=== PATIENT | male | born 1955 | race African-American/Black ===

== ENCOUNTER 2016-08-21 19:37 | Inpatient (IN) | payer BC ==
[~2016-08-21] VITALS: Ht 182.9 cm; Wt 104.4 kg
[~2016-08-21 19:37] MED LIST: AMLO10TA2 PO; ASPI-482 PO; CARV12.52 PO; LISI1TAB7 PO; LORA2TAB PO; SPIR25TA3 PO
[2016-08-21 20:40] VITALS: BP 95/61
[2016-08-21] MEDS ORDERED: POLYETHYLENE GLYCOL 3350 17 GM PACKET. PO PRN (21:45)
[2016-08-21] MEDS ORDERED: HYDROCODONE/APAP 5/325MG TABLET. PO PRN (21:45)
[2016-08-21] MEDS ORDERED: CEFTRIAXONE SODIUM 1 GM in IV NORMAL SALINE 50ML 50 ML IV SCH (22:00)
[2016-08-21] MEDS: ACETAMINOPHEN 325 MG TABLET. PO PRN (22:02)
[2016-08-21 22:35] LABS: BASO % 0 % (0-3); EOS % 0 % (0-3); HEMATOCRIT 40.3 % (39.0-53.0); LYMPH # 0.7 x10^3/uL (1.0-4.8); LYMPH % 13 % (24-48); MEAN CORPUSCULAR HEMOGLOBIN 28 pg (25-35); MEAN CORPUSCULAR HGB CONC 32 g/dL (31-37); MEAN CORPUSCULAR VOLUME 86 fL (79-100); MONO % 13 % (0-9); NEUT % 73 % (31-73); PLATELET COUNT 165 x10^3/uL (140-400); RED BLOOD COUNT 4.68 x10^6/uL (4.30-5.70); RED CELL DISTRIBUTION WIDTH 14.6 % (11.5-14.5); WHITE BLOOD COUNT 5.1 x10^3/uL (4.0-11.0)
[2016-08-21] MEDS ORDERED: FURO40TA4 PO (22:40)
[2016-08-21] MEDS ORDERED: LISI-334 PO (22:40)
[2016-08-21] MEDS ORDERED: CARV25TA2 PO (22:40)
[2016-08-21 22:47] LABS: OBC FLU VALID
[2016-08-21 22:52] LABS: ALBUMIN 4.2 g/dL (3.4-5.0); ALBUMIN/GLOBULIN RATIO 0.9 (1.0-1.7); CREATININE 1.6 mg/dL (0.7-1.3); GFR 53.6; POTASSIUM 3.8 mmol/L (3.5-5.1); TOTAL BILIRUBIN 0.4 mg/dL (0.2-1.0)
[2016-08-21 23:00] VITALS: BP 149/83
[2016-08-21 23:38] VITALS: BP_SYST 147; BP_SYST 148; BP_DIAS 79; BP_DIAS 87
[2016-08-22 00:15] LABS: BILIRUBIN,URINE NEGATIVE (NEG); GLUCOSE,URINE NEGATIVE (NEG); NITRITE,URINE NEGATIVE (NEG); PROTEIN,URINE NEGATIVE (NEG-TRACE); UROBILINOGEN,URINE 0.2 mg/dL (0.2 mg/dL)
[2016-08-22 00:24] LABS: BACTERIA,URINE MOD /HPF (0-FEW); RBC,URINE 0 /HPF (0-2); SQUAMOUS EPITHELIAL CELL,UR FEW /LPF
--- NOTE | 2016-08-22 01:30 | HP ---
ADMIT DATE: 08/21/2016 HISTORY OF PRESENT ILLNESS: This is a 61-year-old black male who was seen in the office this evening. He stated that he was not feeling well 4 days ago and had a fever. He did not check his temperature. He came out of the shower and fell. He had passed out. He, however, got up and went about his business. In the next few days, he continued to have fever, body aches and pains. He was also coughing up yellowish sputum. This morning when I got up out of bed, he fell again. He had passed out. That caused him to be concern, but he did not call me until this evening. It was a ____ that he came into the office. In the office, he had a temperature of 102 degrees. An EKG was normal. He had no orthostatic hypotension. He was advised hospitalization. PAST MEDICAL HISTORY: Significant. He was hospitalized here about 2 years ago with severe chest pain and back pain. Coronary arteriogram shows negative. 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 He also had a cardiomyopathy and he has had a known cardiomyopathy and was being followed by the physicians at . His EF was 30%. Initially he was transferred to , who observed him for a week. He had hemothorax that was drained. Finally, the decision was to treat this without surgery. His blood pressure was better controlled and he was discharged. He then came to see me and I have been controlling his blood pressure. I then sent him to see Dr. Austin at [facility]. Dr. Austin agreed with the medical management of his extensive dissection. Recently, however, Dr. 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 He has another appointment to see Dr. Austin this week. All along this time, he has had renal dysfunction. He has had ____ several times to evaluate the dissecting aorta. However, his renal functions have remained stable and at the last check his creatinine was 1.8. Because of his cardiomyopathy and ejection fraction of 20-30%, he was advised AICD, but he has consistently refused it. PRESENT MEDICATIONS: 1. Spironolactone 25 mg a day. 2. Carvedilol 25 mg twice a day. 3. Furosemide 40 mg a day. 4. Lisinopril 20 mg a day. 5. Hydrocodone p.r.n. He says he takes Aleve p.r.n., but I will have to stop that. PHYSICAL EXAMINATION: GENERAL: He was in no distress. VITAL SIGNS: The heart rate was 90 per minute and regular. The blood pressure is 120/80 with no orthostasis. The temperature was 102. Oxygen saturation was normal. LUNGS: Clear. HEART: The heart sounds are normal with no murmur or gallop. The throat was injected. ABDOMEN: Soft. EXTREMITIES: There is no edema of the legs. IMPRESSION: 1. Acute bronchitis, rule out pneumonia. 2. Nonischemic cardiomyopathy. 3. Probable influenza. 4. Syncope needs to be concerned about ventricular arrhythmias because of his underlying cardiomyopathy. We will initiate him on IV antibiotics and Tamiflu. We will monitor him for arrhythmias. If there are indeed evidence of arrhythmias, he would be approached again regarding AICD. JOSE CARLOS DOBSON MD DR: MARY CARMEN/liliane JOB#: [id number] / [id number]
[2016-08-22 03:00] VITALS: BP 121/64
[2016-08-22 08:20] VITALS: BP 119/77
--- NOTE | 2016-08-22 08:41 | RAD ---
INDICATION: cough COMPARISON: 02/18/2015 FINDINGS: 2 views of chest obtained. There is interval placement of aortic stent graft. No definite focal airspace consolidation or edema. Cardiac silhouette is borderline enlarged IMPRESSION: No definite focal airspace consolidation.
[2016-08-22] MEDS: LOSARTAN POTASSIUM 50 MG TABLET. PO SCH ×2 (09:00→12:06)
[2016-08-22] MEDS ORDERED: SPIRONOLACTONE 25 MG TABLET PO SCH (09:00)
[2016-08-22] MEDS: FUROSEMIDE 40 MG TABLET PO SCH (09:09)
[2016-08-22] MEDS: OSELTAMIVIR 75 MG CAPSULE PO SCH ×2 (09:10→20:25)
[2016-08-22] MEDS: CARVEDILOL 12.5 MG TABLET PO SCH ×2 (09:11→18:21)
--- NOTE | 2016-08-22 09:30 | PDOC ---
Infectious Disease Note Vital Sign Vital Signs Vital Signs Date Time Temp Pulse Resp B/P Pulse Ox O2 Delivery O2 Flow Rate FiO2 08/22/16 09:11 94 119/77 08/22/16 08:20 100.0 20 94 Room Air 100.0 Labs Lab Laboratory Tests Test 08/21/16 22:10 08/21/16 22:15 08/21/16 23:34 Influenza Type A Antigen Negative (NEGATIVE) Influenza Type B Antigen Negative (NEGATIVE) White Blood Count 5.1x10^3/uL (4.0-11.0) Red Blood Count 4.68x10^6/uL (4.30-5.70) Hemoglobin 13.0g/dL (13.0-17.5) Hematocrit 40.3% (39.0-53.0) Mean Corpuscular Volume 86fL (79-100) Mean Corpuscular Hemoglobin 28pg (25-35) Mean Corpuscular Hemoglobin Concent 32g/dL (31-37) Red Cell Distribution Width 14.6% (11.5-14.5) Platelet Count 165x10^3/uL (140-400) Neutrophils (%) (Auto) 73% (31-73) Lymphocytes (%) (Auto) 13% (24-48) Monocytes (%) (Auto) 13% (0-9) Eosinophils (%) (Auto) 0% (0-3) Basophils (%) (Auto) 0% (0-3) Neutrophils # (Auto) 3.7x10^3uL (1.8-7.7) Lymphocytes # (Auto) 0.7x10^3/uL (1.0-4.8) Monocytes # (Auto) 0.7x10^3/uL (0.0-1.1) Eosinophils # (Auto) 0.0x10^3/uL (0.0-0.7) Basophils # (Auto) 0.0x10^3/uL (0.0-0.2) Sodium Level 134mmol/L (136-145) Potassium Level 3.8mmol/L (3.5-5.1) Chloride Level 95mmol/L (98-107) Carbon Dioxide Level 27mmol/L (21-32) Anion Gap 12 (6-14) Blood Urea Nitrogen 19mg/dL (8-26) Creatinine 1.6mg/dL (0.7-1.3) Estimated GFR (Cockcroft-Gault) 53.6 BUN/Creatinine Ratio 12 (6-20) Glucose Level 86mg/dL (70-99) Calcium Level 9.0mg/dL (8.5-10.1) Total Bilirubin 0.4mg/dL (0.2-1.0) Aspartate Amino Transf (AST/SGOT) 38U/L (15-37) Alanine Aminotransferase (ALT/SGPT) 31U/L (16-63) Alkaline Phosphatase 61U/L (46-116) Troponin I Quantitative 0.032ng/mL (0.000-0.055) Total Protein 9.0g/dL (6.4-8.2) Albumin 4.2g/dL (3.4-5.0) Albumin/Globulin Ratio 0.9 (1.0-1.7) Urine Collection Type Unknown Urine Color Yellow Urine Clarity Clear Urine pH 6.0 Urine Specific [place] 1.010 Urine Protein Negativemg/dL (NEG-TRACE) Urine Glucose (UA) Negativemg/dL (NEG) Urine Ketones (Stick) Negativemg/dL (NEG) Urine Blood Negative (NEG) Urine Nitrite Negative (NEG) Urine Bilirubin Negative (NEG) Urine Urobilinogen Dipstick 0.2mg/dL (0.2 mg/dL) Urine Leukocyte Esterase Negative (NEG) Urine RBC 0/HPF (0-2) Urine WBC 1-4/HPF (0-4) Urine Squamous Epithelial Cells Few/LPF Urine Transitional Epithelial Cells Occ/LPF Urine Bacteria Mod/HPF (0-FEW) Urine Hyaline Casts Few/HPF Urine Mucus Slight/LPF Objective Assessment Fever URI symptoms Syncope h/o Aortic dissection s/p stenting Renal insufficiency Plan Plan of Care agree with levaquin and tamiflu d/c rocephine get ct chest , abd and pelvis may need echo JUAN CARMONA MD Aug 22, 2016 09:30
[2016-08-22 11:10] VITALS: BP 119/76
[2016-08-22 15:00] VITALS: BP 111/70
[2016-08-22] MEDS: ACETAMINOPHEN 325 MG TABLET. PO PRN (18:20)
[2016-08-22] MEDS: IV NORMAL SALINE 1000ML BAG 1,000 ML IV SCH (18:45)
[2016-08-22 19:00] VITALS: BP 94/55
--- NOTE | 2016-08-22 20:51 | PDOC ---
Provider Note Provider Note MAXIMUM TEMPERATURE of 101.1 today.He feels better. His creatinine is elevated to 1.8. The aortic dissection is being followed by his surgeon Dr. Austin at [facility]. He has an appointment with him in the next week. Will thus cancel the CT with contrast that was requested for today so that it could be done at his surgeon's office. Obtain CT chest with no IV contrast tomorrow to look for pulmonary infiltrates. JOSE CARLOS DOBSON MD Aug 22, 2016 20:51
[2016-08-22] MEDS: IPRATRPIUM/ALBUTEROL 0.5/2.5MG 3 ML NEBU. NEB SCH (22:42)
[2016-08-22 23:00] VITALS: BP 82/48
[2016-08-22] MEDS: HEPARIN PF for SUB-Q USE 5,000 UNIT/0.5 ML VIAL. SQ SCH (23:39)
[2016-08-23] VITALS (7 sets, daily range): BP systolic 90–166; BP diastolic 50–102
--- NOTE | 2016-08-23 02:04 | CONS ---
DATE OF CONSULTATION: 08/22/2016 REQUESTING PHYSICIAN: Dr. Contreras. REASON FOR CONSULTATION: Fever and syncope. HISTORY OF PRESENT ILLNESS: This is a 61-year-old -[place] gentleman with history of hypertension and aortic dissection who came in with his syncopal episode, 2 of them. The first one he says he has had it on Thursday. Initially, he thought he tripped and fell, but then he realized that he had passed out for a very brief moment, he says. The patient has been having URI symptoms before then with cough, congestion, and significant phlegm that he cannot get it out, he says. The patient again yesterday passed out. Hence then eventually, his neighbor called and was brought in. The patient denies any chest pain, denies any nausea, vomiting, diarrhea, denies any urinary symptoms, denies any headache or visual symptoms. The patient has been noted to have 103 fever. The patient has been started on Rocephin, Levaquin, and Tamiflu. Influenza screen was negative. Blood cultures have been done. Chest x-ray is unremarkable. PAST MEDICAL HISTORY: Positive for hypertension, renal insufficiency, aortic dissection, status post stenting done about a year and half ago. SOCIAL HISTORY: Negative for smoking, alcohol, or illicit drug use. ALLERGIES: Listed as allergic to MORPHINE. CURRENT MEDICATIONS: Reviewed. REVIEW OF SYSTEMS: As per HPI, all other systems reviewed are negative. PHYSICAL EXAMINATION: GENERAL: Alert and oriented gentleman, not in distress. VITAL SIGNS: Temperature 100.0 with a T-max 103, pulse 94, respirations 20, blood pressure 119/77. HEENT: NAD. NECK: Supple, no JVP, no lymphadenopathy. LUNGS: Clear. HEART: S1 and S2 regular. ABDOMEN: Benign. EXTREMITIES: No edema or cyanosis. SKIN: Unremarkable. NEUROLOGIC: The patient is neurologically intact. LABORATORY DATA: White count is 5.1, hemoglobin 13.0, and platelets are normal. His BUN is 19, creatinine 1.6. AST is 38, ALT 31. Influenza screen is negative. Urinalysis is unremarkable. Chest x-ray is unremarkable. Throat culture is negative. Blood culture is so far negative. IMPRESSION: 1. Fever. This gentleman has no other obvious reason. Fever could be viral illness. Influenza is still a possibility with the screen negative. 2. Upper respiratory infection symptoms. 3. Syncope. 4. History of aortic dissection, status post stenting. 5. Renal insufficiency. 6. Hypertension. RECOMMENDATIONS: I agree with Levaquin and Tamiflu. We will discontinue Rocephin. We will get CT of abdomen and pelvis and may need echocardiogram. Thank you very much, Dr. Contreras, for giving me the opportunity to participate in this patient's care. JUAN CARMONA MD DR: GRACY/nts JOB#: [id number] / [id number]
[2016-08-23] MEDS: IV NORMAL SALINE 1000ML BAG 1,000 ML IV SCH ×2 (05:23→15:05)
[2016-08-23] MEDS: HEPARIN PF for SUB-Q USE 5,000 UNIT/0.5 ML VIAL. SQ SCH ×3 (05:29→21:32)
[2016-08-23] MEDS: IPRATRPIUM/ALBUTEROL 0.5/2.5MG 3 ML NEBU. NEB SCH ×4 (07:44→20:11)
[2016-08-23] MEDS: CARVEDILOL 12.5 MG TABLET PO SCH ×2 (08:00→17:48)
[2016-08-23] MEDS: LOSARTAN POTASSIUM 50 MG TABLET. PO SCH (09:00)
[2016-08-23] MEDS: FUROSEMIDE 40 MG TABLET PO SCH (09:00)
--- NOTE | 2016-08-23 09:25 | PDOC ---
Infectious Disease Note Subjective Subjective Better. fever better. Less congestion ROS ROS GEN: Denies fevers, chills, sweats HEENT: Denies blurred vision, sore throat CV: Some chest pain from fall - better RESP: Denies shortness of air GI: Denies n/v/d NEURO: Denies confusion, dizziness MSK: Denies weakness, joint pain/swelling Vital Sign Vital Signs Vital Signs Date Time Temp Pulse Resp B/P Pulse Ox O2 Delivery O2 Flow Rate FiO2 08/23/16 07:44 96 Room Air 08/23/16 07:00 98.1 65 18 90/50 98.1 Physical Exam PHYSICAL EXAM GENERAL: NAD, Alert, in bed. looks well HEENT: PERRL, OC/OP -clear NECK: Supple, no JVD, no LN LUNGS: Clear HEART: S1S2, no gallop, no murmur ABD: Soft, NT, no organomegaly, no rebound EXT: No edema, no cyanosis SAFETY SCIENTIST: Alert, oriented x 3, no focal neurologic deficit SKIN: No rash IV: ok Labs Lab Laboratory Tests Test 08/22/16 11:00 Creatine Kinase 906U/L (39-308) Objective Assessment Overall feels better Fever -better URI symptoms Syncope h/o Aortic dissection s/p stenting Renal insufficiency Plan Plan of Care agree with levaquin for now D/c tamiflu Labs in am F/u ct may need echo MARGA CORTES MD Aug 23, 2016 09:25
--- NOTE | 2016-08-23 09:32 | RAD ---
Indication fever. Cough. Axial noncontrast images through the chest were obtained. Note is made of a previous examination 02/16/2015. Some coronary artery calcification is noted. The ascending thoracic aorta is prominent measuring approximately 4.4 cm. There has not been a significant change however in this regard relative to the previous exam. A stent is now noted extending from the arch of the aorta to the distal descending thoracic aorta. Some mild aneurysmal dilatation of the upper abdominal aorta is seen. It is dilated to approximately 4 cm representing a slight increase in size, by approximately 2 to 3 mm, relative to the previous exam. There are a few mediastinal lymph nodes. These are likely incidental and appear somewhat smaller than on the previous exam. A dominant soft tissue mass in either lung is not seen. There is some scarring at the left lung base similar to the previous exam. An acute parenchymal infiltrate in either lung is not seen. Imaging through the upper abdomen is unremarkable. IMPRESSION: No acute finding seen in the chest. Thoracic stent graft. Mild aneurysmal dilatation of the upper abdominal aorta. Unchanged prominence of the ascending thoracic aorta PQRS Compliance Statement: One or more of the following individualized dose reduction techniques were utilized for this examination: 1. Automated exposure control 2. Adjustment of the mA and/or kV according to patient size 3. Use of iterative reconstruction technique
--- NOTE | 2016-08-23 12:02 | CONS ---
DATE OF CONSULTATION: 08/22/2016 REFERRING PHYSICIAN: Dr. Camelia Contreras. CHIEF COMPLAINT: Shortness of breath, weakness, syncope. HISTORY OF PRESENT ILLNESS: The patient is a 61-year-old gentleman with significant cardiac history that dated back to 02/2015, at which time he had an aortic root dissection, which was repaired at . His echo at that time had shown an EF of 20% to 25%. He has been monitored by Dr. Contreras since with echo, most recently about a year ago. Discussions are ongoing about pacer/AICD placement for persistent heart failure. The patient presented in direct admit through Dr. Contreras with a history of 2 weeks of shortness of breath, cough without any chest pain. Generalized malaise, weakness as well. Appetite was off. In hindsight, he had 2 episodes of syncope with sudden loss of consciousness, one 5 days ago, second one just yesterday, which actually was observed by his neighbor, who had called when he had a lightheadedness, dizziness prodrome. With the first event, he actually hit his chest as well as his head, both areas are sore. He is now admitted for further monitoring and workup. PAST MEDICAL HISTORY: CHF, history of aortic root dissection repaired at , followup EF was 30%. CAD, status post stent placement about a year ago by Dr. Austin. Chronic renal insufficiency stage 3 and suspected COPD with [id number] history, quit smoking with his cardiac event in 2014. FAMILY HISTORY: Negative for heart disease. SOCIAL HISTORY: Lives by himself. No ongoing toxic habits. He is retired. ALLERGIES: MORPHINE. MEDICATIONS: MAR reviewed. REVIEW OF SYSTEMS: The patient is feeling much better, although general malaise is persisting, had fevers yesterday, mild cough as well. Denies any chest pain per se. No abdominal pain symptoms. The rest of organ system review is negative. PHYSICAL EXAMINATION: VITAL SIGNS: Show a blood pressure of 111/70, heart rate at 88, temperature at 101.1, satting 97% on room air. GENERAL: This is an obese 61-year-old -[place] gentleman, awake and alert, in no acute distress. HEENT: Shows no scleral icterus. Oral mucosa is pink and moist. No sign of thrush. NECK: Supple, without any palpable lymphadenopathy. LUNGS: Clear bilaterally with significantly decreased breath sounds. CARDIOVASCULAR: Regular rate and rhythm. ABDOMEN: Obese, positive bowel sounds, soft and nontender. EXTREMITIES: Show no edema, no clubbing, no cyanosis. SKIN: Warm, soft and dry without any rash. LABORATORY DATA: CBC from today shows a WBC of 5.1, hemoglobin of 13.0, platelets at 135. Chemistries with a BUN and creatinine of 19 and 1.6. Electrolytes with a sodium of 134, potassium of 3.8. LFTs essentially within normal limits. Interestingly, his creatine kinase is 906 with a normal troponin. Total protein at 9 with an albumin of 4.2. Influenza A and B serologies are negative. UA shows moderate bacteria with 1-4 wbc's. IMAGING: Chest x-ray from yesterday shows no definite focal airspace consolidation or edema. Cardiac silhouette is borderline enlarged. ASSESSMENT AND PLAN: The patient is a 61-year-old gentleman with respiratory symptoms for the past 2 weeks. He now completely agrees with broad spectrum coverage with levofloxacin. Blood cultures have been obtained. Suspect, however, that he has potentially a urinary tract infection with urosepsis. Levaquin should cover this as well. Cultures are pending. Orthostatic vital signs have just been obtained and the patient is indeed orthostatic. He confirms that his p.o. intake has been poor over the past couple of weeks. We will gently hydrate him with a liter, careful to not worsen his congestive heart failure. We will obtain an echocardiogram in the a.m. to get current status to help with further discussions about automatic implantable cardioverter-defibrillator placement. The patient is concerned to have an "object" in his chest. I am also concerned with his tightness in his chest, albeit without any wheezing, that he may have a chronic obstructive pulmonary disease exacerbation. Should he not improve, would consider steroids. We will treat him with nebulizers in the meantime. Steroids with ongoing infection as well as congestive heart failure are somewhat difficult to justify without definitive diagnosis. The patient does have history of coronary artery disease as well. He is on multiple medications, which will be continued as per Dr. Contreras. He is currently on 2 diuretics. We would consider holding these temporarily given his orthostasis. The patient does have chronic kidney disease stage 3, which currently appears to be at baseline. We would carefully monitor. Avoid nephrotoxic agents. The patient has elevated creatine kinase. This is somewhat unusual given his fairly normal troponin. I suspect this actually may be muscular in origin, question statin use in the past. Alternatively, this may indicate more muscle bruising from recent falls as well. Given his current medical issues and decreased activity level, I would prophylax for deep venous thrombosis with heparin. RUFINO JEFFREY MD DR: HENRY/nts JOB#: [id number] / [id number]
--- NOTE | 2016-08-23 12:05 | PDOC ---
PROGRESS NOTES Chief Complaint Chief Complaint Acute hypoxic respir distress ASSESSMENT AND PLAN: 1. Bronchitis/viral syndrome: clinically improved. CT chest w/o infiltrate. Abx as per ID 2. Sepsis: improving. 3. ?COPD: nebs seem to help. no wheezing, but much decreased BS. consider steroids, but has to be weighed against potential ASE in acute CHF 4. CHF: chronic systolic : no clinical findings of fluid overload by P.E or radiographic findings. pro-BNP sl up, poss 2/2 CKD. continue home meds. echo pending 5. Orthostatic Hypotension: improving after gentle fluid hydration O/N. spironolactone on hold for now; cont lasix. monitor fluid status, VS 6. UTI: awaiting urine culture. empiric levaquin. 7. CKD3: at baseline. awaiting today's labs 8. Elevated CK: ?myositis, poss statin effect. rpt lab pending 9. Hx aortic dissection: s/p stenting 1.5 yrs ago 10. Prophylaxis: heparin Vitals Vitals Vital Signs Date Time Temp Pulse Resp B/P Pulse Ox O2 Delivery O2 Flow Rate FiO2 08/23/16 11:22 Room Air 08/23/16 10:56 98.1 71 111/65 96 98.1 08/23/16 07:00 18 Physical Exam General: Alert, Oriented X3, Cooperative Heart: Regular rate Lungs: Clear, Other (decreased BS) Abdomen: Normal bowel sounds, Soft, No tenderness, Other (obese) Extremities: No clubbing, No edema Skin: No rashes Review of Systems Review of Systems feels better this AM. nebs helped. gen malaise improving Comment Review of Relevant RUFINO JEFFREY MD Aug 23, 2016 12:05
[2016-08-23 13:16] LABS: BASO % 0 % (0-3); EOS % 1 % (0-3); HEMATOCRIT 32.6 % (39.0-53.0); HEMOGLOBIN 10.6 g/dL (13.0-17.5); LYMPH # 1.9 x10^3/uL (1.0-4.8); LYMPH % 42 % (24-48); MEAN CORPUSCULAR HEMOGLOBIN 28 pg (25-35); MEAN CORPUSCULAR HGB CONC 33 g/dL (31-37); MEAN CORPUSCULAR VOLUME 85 fL (79-100); MONO % 13 % (0-9); NEUT % 44 % (31-73); PLATELET COUNT 147 x10^3/uL (140-400); RED BLOOD COUNT 3.82 x10^6/uL (4.30-5.70); RED CELL DISTRIBUTION WIDTH 14.6 % (11.5-14.5); WHITE BLOOD COUNT 4.4 x10^3/uL (4.0-11.0)
[2016-08-23 13:32] LABS: ALBUMIN 2.4 g/dL (3.4-5.0); ALBUMIN/GLOBULIN RATIO 0.7 (1.0-1.7); CALCIUM 6.8 mg/dL (8.5-10.1); CREATININE 1.2 mg/dL (0.7-1.3); GFR 74.7; TOTAL BILIRUBIN 0.2 mg/dL (0.2-1.0); TOTAL PROTEIN 5.9 g/dL (6.4-8.2)
[2016-08-23 13:35] LABS: POTASSIUM 2.9 mmol/L (3.5-5.1)
[2016-08-23] MEDS ORDERED: POTASSIUM CHLORIDE 20 MEQ TABLET.ER. PO ONE ×2 (13:45→17:00)
--- NOTE | 2016-08-23 15:25 | PDOC ---
Provider Note Provider Note He still feels very weak and has not been out of bed. Cough is better. Lungs are clear. He is afebrile today. Monitor at 8.17 EN-wdej-hqwzi-showed-a 5 beat run of multifocal ventricular tachycardia. The patient so far had been refusing a defibrillator. I showed him the strip of the ventricular tachycardia. He now seems to be agreeable to a defibrillator but I would wait at least a week after he had had a temperature of 103. In the meantime will request [facility] to give him a LifeVest. Transferr to C[facility] for better monitoring. JOSE CARLOS DOBSON MD Aug 23, 2016 15:25
[2016-08-24] MEDS: IV NORMAL SALINE 1000ML BAG 1,000 ML IV SCH ×2 (02:45→12:00)
[2016-08-24 03:20] VITALS: BP 135/80
[2016-08-24 04:14] LABS: BASO % 1 % (0-3); EOS % 2 % (0-3); HEMATOCRIT 34.4 % (39.0-53.0); HEMOGLOBIN 11.4 g/dL (13.0-17.5); LYMPH # 2.1 x10^3/uL (1.0-4.8); LYMPH % 43 % (24-48); MEAN CORPUSCULAR HEMOGLOBIN 28 pg (25-35); MEAN CORPUSCULAR HGB CONC 33 g/dL (31-37); MEAN CORPUSCULAR VOLUME 85 fL (79-100); MONO % 8 % (0-9); NEUT % 46 % (31-73); PLATELET COUNT 168 x10^3/uL (140-400); RED BLOOD COUNT 4.06 x10^6/uL (4.30-5.70); RED CELL DISTRIBUTION WIDTH 14.1 % (11.5-14.5); WHITE BLOOD COUNT 4.8 x10^3/uL (4.0-11.0)
[2016-08-24 04:26] LABS: CALCIUM 8.8 mg/dL (8.5-10.1); CREATININE 1.4 mg/dL (0.7-1.3); GFR 62.6; POTASSIUM 4.6 mmol/L (3.5-5.1)
[2016-08-24] MEDS: HEPARIN PF for SUB-Q USE 5,000 UNIT/0.5 ML VIAL. SQ SCH ×3 (06:22→21:00)
[2016-08-24 07:00] VITALS: BP 144/77
[2016-08-24] MEDS: IPRATRPIUM/ALBUTEROL 0.5/2.5MG 3 ML NEBU. NEB SCH ×4 (07:24→19:17)
[2016-08-24] MEDS: CARVEDILOL 12.5 MG TABLET PO SCH ×2 (07:43→16:21)
[2016-08-24] MEDS: FUROSEMIDE 40 MG TABLET PO SCH (08:43)
[2016-08-24] MEDS: LOSARTAN POTASSIUM 50 MG TABLET. PO SCH (08:43)
[2016-08-24] MEDS: ACETAMINOPHEN 325 MG TABLET. PO PRN (08:50)
--- NOTE | 2016-08-24 10:41 | PDOC ---
Infectious Disease Note Subjective Subjective Transferred to [facility]VC d/t run of V-TACH Denies SOA, CP or lightheadedness Feeling bloated, no BM. Recent You-a Lax. Ken N/V/abd pain Mild sore throat, not too bad ROS ROS GEN: Denies fevers, chills, sweats Vital Sign Vital Signs Vital Signs Date Time Temp Pulse Resp B/P Pulse Ox O2 Delivery O2 Flow Rate FiO2 08/24/16 08:43 73 144/77 08/24/16 07:27 100 Room Air 08/24/16 07:00 98.0 18 98.0 Physical Exam PHYSICAL EXAM GENERAL: Propped up in bed, NAD HEENT: PERRL, OC/OP clear LUNGS: Clear HEART: S1S2, no gallop, no murmur ABD: Soft, NT, BS present EXT: No edema, no cyanosis CLINICAL BIOCHEMIST: Alert, oriented x 3, no focal neurologic deficit SKIN: No rash IV: ok Labs Lab Laboratory Tests Test 08/23/16 12:50 08/24/16 03:30 White Blood Count 4.4x10^3/uL (4.0-11.0) 4.8x10^3/uL (4.0-11.0) Red Blood Count 3.82x10^6/uL (4.30-5.70) 4.06x10^6/uL (4.30-5.70) Hemoglobin 10.6g/dL (13.0-17.5) 11.4g/dL (13.0-17.5) Hematocrit 32.6% (39.0-53.0) 34.4% (39.0-53.0) Mean Corpuscular Volume 85fL (79-100) 85fL (79-100) Mean Corpuscular Hemoglobin 28pg (25-35) 28pg (25-35) Mean Corpuscular Hemoglobin Concent 33g/dL (31-37) 33g/dL (31-37) Red Cell Distribution Width 14.6% (11.5-14.5) 14.1% (11.5-14.5) Platelet Count 147x10^3/uL (140-400) 168x10^3/uL (140-400) Neutrophils (%) (Auto) 44% (31-73) 46% (31-73) Lymphocytes (%) (Auto) 42% (24-48) 43% (24-48) Monocytes (%) (Auto) 13% (0-9) 8% (0-9) Eosinophils (%) (Auto) 1% (0-3) 2% (0-3) Basophils (%) (Auto) 0% (0-3) 1% (0-3) Neutrophils # (Auto) 1.9x10^3uL (1.8-7.7) 2.2x10^3uL (1.8-7.7) Lymphocytes # (Auto) 1.9x10^3/uL (1.0-4.8) 2.1x10^3/uL (1.0-4.8) Monocytes # (Auto) 0.6x10^3/uL (0.0-1.1) 0.4x10^3/uL (0.0-1.1) Eosinophils # (Auto) 0.0x10^3/uL (0.0-0.7) 0.1x10^3/uL (0.0-0.7) Basophils # (Auto) 0.0x10^3/uL (0.0-0.2) 0.0x10^3/uL (0.0-0.2) Sodium Level 140mmol/L (136-145) 134mmol/L (136-145) Potassium Level 2.9mmol/L (3.5-5.1) 4.6mmol/L (3.5-5.1) Chloride Level 108mmol/L (98-107) 102mmol/L (98-107) Carbon Dioxide Level 22mmol/L (21-32) 24mmol/L (21-32) Anion Gap 10 (6-14) 8 (6-14) Blood Urea Nitrogen 20mg/dL (8-26) 20mg/dL (8-26) Creatinine 1.2mg/dL (0.7-1.3) 1.4mg/dL (0.7-1.3) Estimated GFR (Cockcroft-Gault) 74.7 62.6 BUN/Creatinine Ratio 17 (6-20) Glucose Level 76mg/dL (70-99) 88mg/dL (70-99) Calcium Level 6.8mg/dL (8.5-10.1) 8.8mg/dL (8.5-10.1) Total Bilirubin 0.2mg/dL (0.2-1.0) Aspartate Amino Transf (AST/SGOT) 27U/L (15-37) Alanine Aminotransferase (ALT/SGPT) 21U/L (16-63) Alkaline Phosphatase 39U/L (46-116) Creatine Kinase 622U/L (39-308) Total Protein 5.9g/dL (6.4-8.2) Albumin 2.4g/dL (3.4-5.0) Albumin/Globulin Ratio 0.7 (1.0-1.7) Chest CT wo contrast Some coronary artery calcification is noted. The ascending thoracic aorta is prominent measuring approximately 4.4 cm. There has not been a significant change however in this regard relative to the previous exam. A stent is now noted extending from the arch of the aorta to the distal descending thoracic aorta. Some mild aneurysmal dilatation of the upper abdominal aorta is seen. It is dilated to approximately 4 cm representing a slight increase in size, by approximately 2 to 3 mm, relative to the previous exam. There are a few mediastinal lymph nodes. These are likely incidental and appear somewhat smaller than on the previous exam. A dominant soft tissue mass in either lung is not seen. There is some scarring at the left lung base similar to the previous exam. An acute parenchymal infiltrate in either lung is not seen. Imaging through the upper abdomen is unremarkable. IMPRESSION: No acute finding seen in the chest. Thoracic stent graft. Mild aneurysmal dilatation of the upper abdominal aorta. Unchanged prominence of the ascending thoracic aorta Micro BLOOD CULTURE Preliminary NO GROWTH AFTER 2 DAYS Objective Assessment Fever. resolved URI symptoms, improved still some congestion R un V-tach Nonischemic cardiomyopathy Syncope h/o Aortic dissection s/p stenting Renal insufficiency Constipated Plan Plan of Care d/c Levaquin defibrillator being considered may need echo Dose doxy for congestion Attending Co-Sign Attending Co-Sign The patient was seen and interviewed as well as examined at the bedside. The chart was reviewed. The case was discussed. Agree with the plan of care. CORRINA HATFIELD APRN Aug 24, 2016 10:41 MARGA CORTES MD Aug 24, 2016 13:49
[2016-08-24 11:00] VITALS: BP 135/74
--- NOTE | 2016-08-24 12:58 | CARD ---
APPROVED REPORT EXAM: Two-dimensional and M-mode echocardiogram with Doppler and color Doppler. Other Information Quality : Good INDICATION Dyspnea Congestive Heart Failure 2D DIMENSIONS RVDd2.6 (2.9-3.5cm)Left Atrium(2D)4.4 (1.6-4.0cm) IVSd1.4 (0.7-1.1cm)Aortic Root(2D)4.0 (2.0-3.7cm) LVDd6.0 (3.9-5.9cm)LVOT Diameter2.3 (1.8-2.4cm) PWd1.6 (0.7-1.1cm)LVDs5.6 (2.5-4.0cm) FS (%) 6.4 %SV25.2 ml LVEF(%)14.0 (>50%) Aortic Valve AoV Peak Russ.122.3cm/sAoV VTI24.0cm AO Peak GR.6.0mmHgLVOT VTI 13.88cm AO Mean GR.3mmHgAVA (VTI)2.30cm2 AI P 1/2 Qdrs139oh Mitral Valve MV E Inhvciin05.0cm/sMV DECEL [id number] MV A Iageyfod12.1cm/sE/A Ratio0.8 TDI Lateral E' P. V5.21cm/sMedial E' P. V5.08cm/s E/Lateral E'10.7E/Medial E'11.0 LEFT VENTRICLE The Left Ventricle is mildly dilated. There is mild concentric left ventricular hypertrophy. Left raffy tricle systolic function is severely impaired. The Ejection Fraction is 20%. There is severe global h ypokinesis of the left ventricle. Transmitral Doppler flow pattern is Grade I-abnormal relaxation pat tern. RIGHT VENTRICLE The right ventricle is normal size. The right ventricular systolic function is normal. ATRIA The left atrium is mildly dilated. The right atrium size is normal. The interatrial septum is intact with no evidence for an atrial septal defect or patent foramen ovale as noted on 2-D or Doppler imagi ng. AORTIC VALVE The aortic valve is calcified but opens well. Doppler and Color Flow revealed mild to moderate aortic regurgitation. There is no significant aortic valvular stenosis. MITRAL VALVE The mitral valve is calcified but opens well. There is no evidence of mitral valve prolapse. There is no mitral valve stenosis. Doppler and Color Flow revealed no mitral valve regurgitation noted. TRICUSPID VALVE The tricuspid valve is normal in structure and function. Doppler and Color Flow revealed trace tricus pid regurgitation. There is no tricuspid valve stenosis. PULMONIC VALVE The pulmonary valve is normal in structure and function. Doppler and Color Flow revealed trace to mil d pulmonic valvular regurgitation. There is no pulmonic valvular stenosis. GREAT VESSELS The aortic root is mildly at 4.2 cm. The ascending aorta is moderately dilated at 4.2 cm. The IVC is normal in size and collapses >50% with inspiration. PERICARDIAL EFFUSION There is no evidence of significant pericardial effusion. Critical Notification Critical Value: No <Conclusion> The Left Ventricle is mildly dilated. There is mild concentric left ventricular hypertrophy. Left ventricle systolic function is severely impaired. The Ejection Fraction is 20%. There is severe global hypokinesis of the left ventricle. Transmitral Doppler flow pattern is Grade I-abnormal relaxation pattern. There is no evidence of significant pericardial effusion. There is no mitral valve stenosis. Doppler and Color Flow revealed no mitral valve regurgitation noted. The lsft atrium is mildly enlarged Thw aortic valve is tricuspidand the valve leaflets mildly thickened There is no significant aortic valvular stenosis. Doppler and Color Flow revealed mild to moderate aortic regurgitation. The right venticle is of a normal size withnormal systolic function
--- NOTE | 2016-08-24 13:08 | PDOC ---
PROGRESS NOTES Chief Complaint Chief Complaint Acute hypoxic respir distress ASSESSMENT AND PLAN: 1. Bronchitis/viral syndrome: clinically improved. CT chest w/o infiltrate. Abx as per ID 2. Sepsis: improving. 3. ?COPD: nebs seem to help. no wheezing, but much decreased BS. consider steroids, but has to be weighed against potential ASE in acute CHF 4. CHF: chronic systolic : no clinical findings of fluid overload by P.E or radiographic findings. pro-BNP sl up, poss 2/2 CKD. continue home meds. echo pending 5. Orthostatic Hypotension: improving after gentle fluid hydration O/N. spironolactone on hold for now; cont lasix. monitor fluid status, VS 6. UTI: awaiting urine culture. empiric levaquin. 7. CKD3: at baseline. awaiting today's labs 8. Elevated CK: ?myositis, poss statin effect. rpt lab pending 9. Hx aortic dissection: s/p stenting 1.5 yrs ago 10. Prophylaxis: heparin levaquin dced as per ID. waiting to ct home with life vest as per pcp. History of Present Illness History of Present Illness cough better 5 beat VT last night Vitals Vitals Vital Signs Date Time Temp Pulse Resp B/P Pulse Ox O2 Delivery O2 Flow Rate FiO2 08/24/16 11:31 Room Air 08/24/16 08:43 73 144/77 08/24/16 07:27 100 08/24/16 07:00 98.0 18 98.0 Physical Exam General: Alert, Oriented X3, Cooperative Heart: Regular rate Lungs: Clear, Other (decreased BS) Abdomen: Normal bowel sounds, Soft, No tenderness, Other (obese) Extremities: No clubbing, No edema Skin: No rashes Labs LABS Laboratory Tests Test 08/24/16 03:30 White Blood Count 4.8x10^3/uL (4.0-11.0) Red Blood Count 4.06x10^6/uL (4.30-5.70) Hemoglobin 11.4g/dL (13.0-17.5) Hematocrit 34.4% (39.0-53.0) Mean Corpuscular Volume 85fL (79-100) Mean Corpuscular Hemoglobin 28pg (25-35) Mean Corpuscular Hemoglobin Concent 33g/dL (31-37) Red Cell Distribution Width 14.1% (11.5-14.5) Platelet Count 168x10^3/uL (140-400) Neutrophils (%) (Auto) 46% (31-73) Lymphocytes (%) (Auto) 43% (24-48) Monocytes (%) (Auto) 8% (0-9) Eosinophils (%) (Auto) 2% (0-3) Basophils (%) (Auto) 1% (0-3) Neutrophils # (Auto) 2.2x10^3uL (1.8-7.7) Lymphocytes # (Auto) 2.1x10^3/uL (1.0-4.8) Monocytes # (Auto) 0.4x10^3/uL (0.0-1.1) Eosinophils # (Auto) 0.1x10^3/uL (0.0-0.7) Basophils # (Auto) 0.0x10^3/uL (0.0-0.2) Sodium Level 134mmol/L (136-145) Potassium Level 4.6mmol/L (3.5-5.1) Chloride Level 102mmol/L (98-107) Carbon Dioxide Level 24mmol/L (21-32) Anion Gap 8 (6-14) Blood Urea Nitrogen 20mg/dL (8-26) Creatinine 1.4mg/dL (0.7-1.3) Estimated GFR (Cockcroft-Gault) 62.6 Glucose Level 88mg/dL (70-99) Calcium Level 8.8mg/dL (8.5-10.1) Review of Systems Review of Systems no fever, chills, sob or chest pain Assessment and Plan Assessmemt and Plan Problems Medical Problems: (1) Influenza Status: Acute (2) Syncope Status: Acute Problems: Comment Review of Relevant I have reviewed the following items denise (where applicable) has been applied. Labs Laboratory Tests Test 08/23/16 12:50 08/24/16 03:30 White Blood Count 4.4x10^3/uL (4.0-11.0) 4.8x10^3/uL (4.0-11.0) Red Blood Count 3.82x10^6/uL (4.30-5.70) 4.06x10^6/uL (4.30-5.70) Hemoglobin 10.6g/dL (13.0-17.5) 11.4g/dL (13.0-17.5) Hematocrit 32.6% (39.0-53.0) 34.4% (39.0-53.0) Mean Corpuscular Volume 85fL (79-100) 85fL (79-100) Mean Corpuscular Hemoglobin 28pg (25-35) 28pg (25-35) Mean Corpuscular Hemoglobin Concent 33g/dL (31-37) 33g/dL (31-37) Red Cell Distribution Width 14.6% (11.5-14.5) 14.1% (11.5-14.5) Platelet Count 147x10^3/uL (140-400) 168x10^3/uL (140-400) Neutrophils (%) (Auto) 44% (31-73) 46% (31-73) Lymphocytes (%) (Auto) 42% (24-48) 43% (24-48) Monocytes (%) (Auto) 13% (0-9) 8% (0-9) Eosinophils (%) (Auto) 1% (0-3) 2% (0-3) Basophils (%) (Auto) 0% (0-3) 1% (0-3) Neutrophils # (Auto) 1.9x10^3uL (1.8-7.7) 2.2x10^3uL (1.8-7.7) Lymphocytes # (Auto) 1.9x10^3/uL (1.0-4.8) 2.1x10^3/uL (1.0-4.8) Monocytes # (Auto) 0.6x10^3/uL (0.0-1.1) 0.4x10^3/uL (0.0-1.1) Eosinophils # (Auto) 0.0x10^3/uL (0.0-0.7) 0.1x10^3/uL (0.0-0.7) Basophils # (Auto) 0.0x10^3/uL (0.0-0.2) 0.0x10^3/uL (0.0-0.2) Sodium Level 140mmol/L (136-145) 134mmol/L (136-145) Potassium Level 2.9mmol/L (3.5-5.1) 4.6mmol/L (3.5-5.1) Chloride Level 108mmol/L (98-107) 102mmol/L (98-107) Carbon Dioxide Level 22mmol/L (21-32) 24mmol/L (21-32) Anion Gap 10 (6-14) 8 (6-14) Blood Urea Nitrogen 20mg/dL (8-26) 20mg/dL (8-26) Creatinine 1.2mg/dL (0.7-1.3) 1.4mg/dL (0.7-1.3) Estimated GFR (Cockcroft-Gault) 74.7 62.6 BUN/Creatinine Ratio 17 (6-20) Glucose Level 76mg/dL (70-99) 88mg/dL (70-99) Calcium Level 6.8mg/dL (8.5-10.1) 8.8mg/dL (8.5-10.1) Total Bilirubin 0.2mg/dL (0.2-1.0) Aspartate Amino Transf (AST/SGOT) 27U/L (15-37) Alanine Aminotransferase (ALT/SGPT) 21U/L (16-63) Alkaline Phosphatase 39U/L (46-116) Creatine Kinase 622U/L (39-308) Total Protein 5.9g/dL (6.4-8.2) Albumin 2.4g/dL (3.4-5.0) Albumin/Globulin Ratio 0.7 (1.0-1.7) Laboratory Tests Test 08/24/16 03:30 White Blood Count 4.8x10^3/uL (4.0-11.0) Red Blood Count 4.06x10^6/uL (4.30-5.70) Hemoglobin 11.4g/dL (13.0-17.5) Hematocrit 34.4% (39.0-53.0) Mean Corpuscular Volume 85fL (79-100) Mean Corpuscular Hemoglobin 28pg (25-35) Mean Corpuscular Hemoglobin Concent 33g/dL (31-37) Red Cell Distribution Width 14.1% (11.5-14.5) Platelet Count 168x10^3/uL (140-400) Neutrophils (%) (Auto) 46% (31-73) Lymphocytes (%) (Auto) 43% (24-48) Monocytes (%) (Auto) 8% (0-9) Eosinophils (%) (Auto) 2% (0-3) Basophils (%) (Auto) 1% (0-3) Neutrophils # (Auto) 2.2x10^3uL (1.8-7.7) Lymphocytes # (Auto) 2.1x10^3/uL (1.0-4.8) Monocytes # (Auto) 0.4x10^3/uL (0.0-1.1) Eosinophils # (Auto) 0.1x10^3/uL (0.0-0.7) Basophils # (Auto) 0.0x10^3/uL (0.0-0.2) Sodium Level 134mmol/L (136-145) Potassium Level 4.6mmol/L (3.5-5.1) Chloride Level 102mmol/L (98-107) Carbon Dioxide Level 24mmol/L (21-32) Anion Gap 8 (6-14) Blood Urea Nitrogen 20mg/dL (8-26) Creatinine 1.4mg/dL (0.7-1.3) Estimated GFR (Cockcroft-Gault) 62.6 Glucose Level 88mg/dL (70-99) Calcium Level 8.8mg/dL (8.5-10.1) Microbiology 08/21/16 Blood Culture - Preliminary, Resulted NO GROWTH AFTER 2 DAYS Medications Current Medications Acetaminophen 650 mg 650 mg PRN Q6HRS PRN PO MILD PAIN / TEMP Last administered on 08/24/16 08:50; Start 08/21/16 at 21:45 Ceftriaxone Sodium 1 gm/ Sodium Chloride 50 ml @ 100 mls/hr Q24H IV Last administered on 08/21/16 22:55; Start 08/21/16 at 22:00; Stop 08/22/16 at 09:36 ; Status DC Levofloxacin/ Dextrose (LEVAQUIN 500mg PREMIX) 100 ml @ 100 mls/hr QHS IV Last administered on 08/23/16 21:24; Start 08/21/16 at 23:00; Stop 08/24/16 at 10:42; Status DC Oseltamivir Phosphate (Tamiflu) 75 mg BID PO Last administered on 08/22/16 20: 25; Start 08/22/16 at 09:00; Stop 08/23/16 at 09:25; Status DC Spironolactone (Aldactone) 25 mg DAILY PO Last administered on 08/22/16 09:10 ; Start 08/22/16 at 09:00; Stop 08/22/16 at 21:48; Status DC Carvedilol (Coreg) 25 mg BIDWMEALS PO Last administered on 08/24/16 07:43; Start 08/22/16 at 08:00 Furosemide (Lasix) 40 mg DAILY PO Last administered on 08/24/16 08:43; Start 08/22/16 at 09:00 Losartan Potassium (Cozaar) 50 mg DAILY PO Last administered on 08/24/16 08:43 ; Start 08/22/16 at 09:00 Polyethylene Glycol (miraLAX PACKET) 17 gm PRN DAILY PRN PO CONSTIPATION Last administered on 08/24/16 08:43; Start 08/21/16 at 21:45 Acetaminophen/ Hydrocodone Bitart 1 tab 1 tab PRN Q4HRS PRN PO MODERATE PAIN; Start 08/21/16 at 21:45 Sodium Chloride (Iv Sodium Chloride 0.9% 1000ml Bag) 1,000 ml @ 100 mls/hr Q10H IV Last administered on 08/24/16 02:45; Start 08/22/16 at 20:00 Heparin Sodium (Porcine) 5,000 unit Q8HRS SQ Last administered on 08/24/16 06: 22; Start 08/22/16 at 22:00 Albuterol/ Ipratropium (Duoneb) 3 ml RTQID NEB Last administered on 08/24/16 11:30; Start 08/22/16 at 22:00 Potassium Chloride (Klor-Con) 40 meq 1X ONCE PO Last administered on 14:12; Start 08/23/16 at 13:45; Stop 08/23/16 at 13:47; Status DC Potassium Chloride (Klor-Con) 40 meq 1X ONCE PO Last administered on 17:47; Start 08/23/16 at 17:00; Stop 08/23/16 at 17:01; Status DC Active Scripts Active Reported Furosemide 40 Mg Tablet 1 Tab PO DAILY Lisinopril 20 Mg Tablet 1 Tab PO DAILY Carvedilol 25 Mg Tablet 25 Mg PO BIDWMEALS Spironolactone 25 Mg Tablet 25 Mg PO DAILY Vitals/I & O Vital Sign - Last 24 Hours 08/23/16 08/23/16 08/23/16 08/23/16 15:21 15:29 17:48 18:54 Temp 98.1 98.3 98.1 98.3 Pulse 76 76 84 Resp 18 19 B/P 148/84 148/84 166/102 Pulse Ox 98 95 O2 Delivery Room Air Room Air Room Air 08/23/16 08/23/16 08/23/16 08/23/16 19:30 19:30 20:14 23:00 Temp 97.6 97.6 Pulse 77 Resp 18 B/P 153/95 144/82 Pulse Ox 99 99 O2 Delivery Room Air Room Air Room Air 08/24/16 08/24/16 08/24/16 08/24/16 03:20 07:00 07:27 07:43 Temp 98.2 98.0 98.2 98.0 Pulse 73 73 73 Resp 18 18 B/P 135/80 144/77 144/77 Pulse Ox 96 100 O2 Delivery Room Air Room Air Room Air 08/24/16 08/24/16 08:43 11:31 Pulse 73 B/P 144/77 O2 Delivery Room Air Intake and Output 08/23/16 08/23/16 08/24/16 15:00 23:00 07:00 Intake Total 240 ml 1320 ml 1900 ml Output Total 300 ml 1000 ml 1700 ml Balance -60 ml 320 ml 200 ml REAGAN KOHLER MD Aug 24, 2016 13:08
--- NOTE | 2016-08-24 14:57 | PDOC ---
Provider Note Provider Note The patient had one more episode of ventricular tachycardia. His potassium today is normal. Lifevest has not yet been delivered. He is otherwise ready to go home. Initially he did not want to wait for the lifevest but now has agreed provided it doesn't take too long. He told me that them if he needs to go he would like to go and he understands the risks of going. The nurse has been requested to call me if there is an undue delay in delivering the LifeVest. JOSE CARLOS DOBSON MD Aug 24, 2016 14:57
[2016-08-24 15:00] VITALS: BP 122/67
[2016-08-24] MEDS: DOXYCYCLINE HYCLATE 100 MG TABLET PO SCH ×2 (16:20→20:59)
[2016-08-24] MEDS: SPIRONOLACTONE 25 MG TABLET PO SCH (16:21)
[2016-08-24 19:00] VITALS: BP 139/71
[2016-08-24] MEDS ORDERED: MAGNESIUM SULFATE 2GM 50 ML IV ONE (19:00)
[2016-08-24] MEDS ORDERED: ZOLPIDEM 5 MG TABLET. PO PRN (19:45)
[2016-08-24 22:32] VITALS: BP 141/71
--- NOTE | 2016-08-25 00:03 | DS ---
DATE OF DISCHARGE: 08/24/2016 HOSPITAL COURSE: This is a 61-year-old black male who was seen in the office after recording a temperature of 102. He also had some cough. He had had two syncopal episodes. This patient has cardiomyopathy. He had been advised getting defibrillator, but he refused. He was thus hospitalized for the elevated temperature to treat upper respiratory tract infection and flu and also to monitor for the two episodes of syncope. The great concern was that he was having episodes of ventricular tachycardia. When he came in, his WBC count was 5100. His temperature went up to 103 degrees. A chest x-ray was negative. He was seen in consultation by Dr. Barriga. The flu swab was negative, but this was so consistent with influenza. He was started with Tamiflu and Dr. Barriga agreed with it. Initially, he was given IV Rocephin and levofloxacin. Dr. Barriga felt that the Rocephin was not necessary. He was febrile the next day, but since then has been afebrile. He feels well. He has been ambulating. He does have renal failure. His baseline creatinine was 1.6. He had had 2 falls and the creatine kinase was elevated, probably due to that. He complained of chest wall pain. . had seen him on a mandatory consult. I would like to clarify certain comments that were made. He does not have a history of coronary artery disease. In fact, his coronary arteriograms were normal when it was checked two years ago. At that time, he had a cardiomyopathy. He has nonischemic cardiomyopathy. She did say about 2 diuretics. The two diuretics are Lasix and spironolactone, which is standard treatment for a patient with cardiomyopathy and CHF. The spironolactone will be resumed since there was a single episode of hypokalemia. The chest pain that he describes is probably chest wall pain from the fall. He has no history of COPD and he has never smoked. I did not think there should be a concern for exacerbation of COPD to be placed on steroids, which . He had no wheezing. Again because of the recent normal coronary arteries and constant chest pain that is not suggestive of angina, further investigation for progression of coronary artery disease was not carried out. During his observation, he had 2 episodes of ventricular tachycardia. The first episode was multifocal. The second episode was unifocal. Both of them consisted of 5-6 beats. One of them occurred at 8:00 p.m. and the other at the middle of the night. Thus, LifeVest was called and they will be giving him a LifeVest. He has agreed to use it. He now agrees to getting a defibrillator. Since he had a recent temperature of 103, we will let him use the LifeVest for 1-2 weeks and then bring him back for the defibrillator. FINAL DIAGNOSES: 1. Nonischemic cardiomyopathy with ejection fraction of 20%. 2. Chest wall pain. 3. Probable influenza. 4. Lower respiratory tract infection. 5. Ventricular tachycardia. 6. Elevated creatine kinase probably from the falls. HOMEGOING INSTRUCTIONS: 1. Activities to tolerance. 2. He was asked to use the LifeVest. 3. He was asked to follow up with his surgeon, Dr. Austin at [facility]. 4. He was asked to see me in a week to discuss the defibrillator. 5. Carvedilol 25 mg twice a day. 6. Furosemide 40 mg a day. 7. Lisinopril 20 mg a day. 8. Spironolactone 25 mg a day. JOSE CARLOS DOBSON MD DR: MARY CARMEN/liliane JOB#: [id number] / [id number]
[2016-08-25 04:00] VITALS: BP 156/82
[2016-08-25 04:58] VITALS: BP 156/82
[2016-08-25] MEDS: HEPARIN PF for SUB-Q USE 5,000 UNIT/0.5 ML VIAL. SQ SCH (06:19)
[2016-08-25 06:56] LABS: CALCIUM 9.3 mg/dL (8.5-10.1); CREATININE 1.4 mg/dL (0.7-1.3); GFR 62.6; POTASSIUM 4.6 mmol/L (3.5-5.1)
[2016-08-25] MEDS: IPRATRPIUM/ALBUTEROL 0.5/2.5MG 3 ML NEBU. NEB SCH (07:09)
[2016-08-25 07:50] VITALS: BP 153/82
--- NOTE | 2016-08-25 08:18 | PDOC ---
PROGRESS NOTES Chief Complaint Chief Complaint Acute hypoxic respir distress ASSESSMENT AND PLAN: 1. Bronchitis/viral syndrome: clinically improved. CT chest w/o infiltrate. Abx as per ID 2. Sepsis: improved. 3. ?COPD: nebs seem to help. no wheezing, but much decreased BS. consider steroids, but has to be weighed against potential ASE in acute CHF 4. CHF: chronic systolic : no clinical findings of fluid overload by P.E or radiographic findings. pro-BNP sl up, poss 2/2 CKD. continue home meds. echo pending 5. Orthostatic Hypotension: improving after gentle fluid hydration O/N. spironolactone on hold for now; cont lasix. monitor fluid status, VS 6. UTI: awaiting urine culture. empiric levaquin. 7. CKD3: at baseline. awaiting today's labs 8. life vest today and anticipated DC today. History of Present Illness History of Present Illness no fever doing better no chest pain Vitals Vitals Vital Signs Date Time Temp Pulse Resp B/P Pulse Ox O2 Delivery O2 Flow Rate FiO2 08/25/16 07:50 97.6 76 19 153/82 96 Room Air 97.6 Physical Exam General: Alert, Oriented X3, Cooperative Heart: Regular rate, Normal S1, Normal S2 Lungs: Clear, Other (decreased BS) Abdomen: Normal bowel sounds, Soft, No tenderness, Other Extremities: No clubbing, No edema Skin: No rashes Labs LABS Laboratory Tests Test 08/25/16 06:05 Sodium Level 138mmol/L (136-145) Potassium Level 4.6mmol/L (3.5-5.1) Chloride Level 101mmol/L (98-107) Carbon Dioxide Level 27mmol/L (21-32) Anion Gap 10 (6-14) Blood Urea Nitrogen 16mg/dL (8-26) Creatinine 1.4mg/dL (0.7-1.3) Estimated GFR (Cockcroft-Gault) 62.6 Glucose Level 91mg/dL (70-99) Calcium Level 9.3mg/dL (8.5-10.1) Assessment and Plan Assessmemt and Plan Problems Medical Problems: (1) Influenza Status: Acute (2) Syncope Status: Acute Problems: Comment Review of Relevant I have reviewed the following items denise (where applicable) has been applied. Labs Laboratory Tests Test 08/23/16 12:50 08/24/16 03:30 08/25/16 06:05 White Blood Count 4.4x10^3/uL (4.0-11.0) 4.8x10^3/uL (4.0-11.0) Red Blood Count 3.82x10^6/uL (4.30-5.70) 4.06x10^6/uL (4.30-5.70) Hemoglobin 10.6g/dL (13.0-17.5) 11.4g/dL (13.0-17.5) Hematocrit 32.6% (39.0-53.0) 34.4% (39.0-53.0) Mean Corpuscular Volume 85fL (79-100) 85fL (79-100) Mean Corpuscular Hemoglobin 28pg (25-35) 28pg (25-35) Mean Corpuscular Hemoglobin Concent 33g/dL (31-37) 33g/dL (31-37) Red Cell Distribution Width 14.6% (11.5-14.5) 14.1% (11.5-14.5) Platelet Count 147x10^3/uL (140-400) 168x10^3/uL (140-400) Neutrophils (%) (Auto) 44% (31-73) 46% (31-73) Lymphocytes (%) (Auto) 42% (24-48) 43% (24-48) Monocytes (%) (Auto) 13% (0-9) 8% (0-9) Eosinophils (%) (Auto) 1% (0-3) 2% (0-3) Basophils (%) (Auto) 0% (0-3) 1% (0-3) Neutrophils # (Auto) 1.9x10^3uL (1.8-7.7) 2.2x10^3uL (1.8-7.7) Lymphocytes # (Auto) 1.9x10^3/uL (1.0-4.8) 2.1x10^3/uL (1.0-4.8) Monocytes # (Auto) 0.6x10^3/uL (0.0-1.1) 0.4x10^3/uL (0.0-1.1) Eosinophils # (Auto) 0.0x10^3/uL (0.0-0.7) 0.1x10^3/uL (0.0-0.7) Basophils # (Auto) 0.0x10^3/uL (0.0-0.2) 0.0x10^3/uL (0.0-0.2) Sodium Level 140mmol/L (136-145) 134mmol/L (136-145) 138mmol/L (136-145) Potassium Level 2.9mmol/L (3.5-5.1) 4.6mmol/L (3.5-5.1) 4.6mmol/L (3.5-5.1) Chloride Level 108mmol/L (98-107) 102mmol/L (98-107) 101mmol/L (98-107) Carbon Dioxide Level 22mmol/L (21-32) 24mmol/L (21-32) 27mmol/L (21-32) Anion Gap 10 (6-14) 8 (6-14) 10 (6-14) Blood Urea Nitrogen 20mg/dL (8-26) 20mg/dL (8-26) 16mg/dL (8-26) Creatinine 1.2mg/dL (0.7-1.3) 1.4mg/dL (0.7-1.3) 1.4mg/dL (0.7-1.3) Estimated GFR (Cockcroft-Gault) 74.7 62.6 62.6 BUN/Creatinine Ratio 17 (6-20) Glucose Level 76mg/dL (70-99) 88mg/dL (70-99) 91mg/dL (70-99) Calcium Level 6.8mg/dL (8.5-10.1) 8.8mg/dL (8.5-10.1) 9.3mg/dL (8.5-10.1) Total Bilirubin 0.2mg/dL (0.2-1.0) Aspartate Amino Transf (AST/SGOT) 27U/L (15-37) Alanine Aminotransferase (ALT/SGPT) 21U/L (16-63) Alkaline Phosphatase 39U/L (46-116) Creatine Kinase 622U/L (39-308) Total Protein 5.9g/dL (6.4-8.2) Albumin 2.4g/dL (3.4-5.0) Albumin/Globulin Ratio 0.7 (1.0-1.7) Magnesium Level 1.7mg/dL (1.8-2.4) Laboratory Tests Test 08/25/16 06:05 Sodium Level 138mmol/L (136-145) Potassium Level 4.6mmol/L (3.5-5.1) Chloride Level 101mmol/L (98-107) Carbon Dioxide Level 27mmol/L (21-32) Anion Gap 10 (6-14) Blood Urea Nitrogen 16mg/dL (8-26) Creatinine 1.4mg/dL (0.7-1.3) Estimated GFR (Cockcroft-Gault) 62.6 Glucose Level 91mg/dL (70-99) Calcium Level 9.3mg/dL (8.5-10.1) Microbiology 08/21/16 Blood Culture - Preliminary, Resulted NO GROWTH AFTER 3 DAYS Medications Current Medications Acetaminophen 650 mg 650 mg PRN Q6HRS PRN PO MILD PAIN / TEMP Last administered on 08/24/16 08:50; Start 08/21/16 at 21:45 Ceftriaxone Sodium 1 gm/ Sodium Chloride 50 ml @ 100 mls/hr Q24H IV Last administered on 08/21/16 22:55; Start 08/21/16 at 22:00; Stop 08/22/16 at 09:36 ; Status DC Levofloxacin/ Dextrose (LEVAQUIN 500mg PREMIX) 100 ml @ 100 mls/hr QHS IV Last administered on 08/23/16 21:24; Start 08/21/16 at 23:00; Stop 08/24/16 at 10:42; Status DC Oseltamivir Phosphate (Tamiflu) 75 mg BID PO Last administered on 08/22/16 20: 25; Start 08/22/16 at 09:00; Stop 08/23/16 at 09:25; Status DC Spironolactone (Aldactone) 25 mg DAILY PO Last administered on 08/22/16 09:10 ; Start 08/22/16 at 09:00; Stop 08/22/16 at 21:48; Status DC Carvedilol (Coreg) 25 mg BIDWMEALS PO Last administered on 08/24/16 16:21; Start 08/22/16 at 08:00 Furosemide (Lasix) 40 mg DAILY PO Last administered on 08/24/16 08:43; Start 08/22/16 at 09:00 Losartan Potassium (Cozaar) 50 mg DAILY PO Last administered on 08/24/16 08:43 ; Start 08/22/16 at 09:00 Polyethylene Glycol (miraLAX PACKET) 17 gm PRN DAILY PRN PO CONSTIPATION Last administered on 08/24/16 08:43; Start 08/21/16 at 21:45 Acetaminophen/ Hydrocodone Bitart 1 tab 1 tab PRN Q4HRS PRN PO MODERATE PAIN; Start 08/21/16 at 21:45 Sodium Chloride (Iv Sodium Chloride 0.9% 1000ml Bag) 1,000 ml @ 100 mls/hr Q10H IV Last administered on 08/24/16 02:45; Start 08/22/16 at 20:00; Stop at 14:16; Status DC Heparin Sodium (Porcine) 5,000 unit Q8HRS SQ Last administered on 08/25/16 06: 19; Start 08/22/16 at 22:00 Albuterol/ Ipratropium (Duoneb) 3 ml RTQID NEB Last administered on 08/25/16 07:09; Start 08/22/16 at 22:00 Potassium Chloride (Klor-Con) 40 meq 1X ONCE PO Last administered on 14:12; Start 08/23/16 at 13:45; Stop 08/23/16 at 13:47; Status DC Potassium Chloride (Klor-Con) 40 meq 1X ONCE PO Last administered on 17:47; Start 08/23/16 at 17:00; Stop 08/23/16 at 17:01; Status DC Doxycycline Hyclate (Vibra-Tab) 100 mg BID PO Last administered on 08/24/16 20 :59; Start 08/24/16 at 14:30 Spironolactone 25 mg 25 mg DAILY PO Last administered on 08/24/16 16:21; Start 08/24/16 at 16:00 Magnesium Sulfate/ Dextrose (Magnesium Sulfate PREMIX 2GM) 50 ml @ 25 mls/hr 1X ONCE IV Last administered on 08/24/16 19:47; Start 08/24/16 at 19:00; Stop 08/24/16 at 20:59; Status DC Zolpidem Tartrate (Ambien) 5 mg PRN QHS PRN PO INSOMNIA, MAY REPEAT IN 1HR Last administered on 08/24/16 21:00; Start 08/24/16 at 19:45 Active Scripts Active Reported Furosemide 40 Mg Tablet 1 Tab PO DAILY Lisinopril 20 Mg Tablet 1 Tab PO DAILY Carvedilol 25 Mg Tablet 25 Mg PO BIDWMEALS Spironolactone 25 Mg Tablet 25 Mg PO DAILY Vitals/I & O Vital Sign - Last 24 Hours 08/24/16 08/24/16 08/24/16 08/24/16 08:43 11:00 11:31 15:00 Temp 97.8 98.1 97.8 98.1 Pulse 73 76 76 Resp 18 18 B/P 144/77 135/74 122/67 Pulse Ox 96 94 O2 Delivery Room Air Room Air Room Air 08/24/16 08/24/16 08/24/16 08/24/16 15:29 16:21 19:00 19:19 Temp 98.2 98.2 Pulse 81 86 Resp 18 B/P 122/67 139/71 Pulse Ox 98 O2 Delivery Room Air Room Air Room Air 08/24/16 08/24/16 08/25/16 08/25/16 19:40 22:32 03:00 04:00 Temp 97.9 98.0 97.9 98.0 Pulse 84 72 77 Resp 16 B/P 141/71 156/82 Pulse Ox 96 97 O2 Delivery Room Air Room Air Room Air 08/25/16 08/25/16 07:09 07:50 Temp 97.6 97.6 Pulse 76 Resp 19 B/P 153/82 Pulse Ox 97 96 O2 Delivery Room Air Room Air Intake and Output 08/24/16 08/24/16 08/25/16 15:00 23:00 07:00 Intake Total 500 ml 800 ml 600 ml Output Total 1275 ml 525 ml Balance 500 ml -475 ml 75 ml MAMI ROCHA MD Aug 25, 2016 08:18
[2016-08-25] MEDS: SPIRONOLACTONE 25 MG TABLET PO SCH (08:35)
[2016-08-25] MEDS: FUROSEMIDE 40 MG TABLET PO SCH (08:35)
[2016-08-25] MEDS: LOSARTAN POTASSIUM 50 MG TABLET. PO SCH (08:35)
[2016-08-25] MEDS: DOXYCYCLINE HYCLATE 100 MG TABLET PO SCH (08:36)
[2016-08-25] MEDS: CARVEDILOL 12.5 MG TABLET PO SCH (08:36)
--- NOTE | 2016-08-25 09:17 | PDOC ---
Infectious Disease Note Subjective Subjective Better with less congestion ROS ROS GEN: Denies fevers, chills, sweats HEENT: Denies blurred vision, sore throat CV: Denies chest pain RESP: Denies shortness of air, cough GI: Denies n/v/d NEURO: Denies confusion, dizziness MSK: Denies weakness, joint pain/swelling Vital Sign Vital Signs Vital Signs Date Time Temp Pulse Resp B/P Pulse Ox O2 Delivery O2 Flow Rate FiO2 08/25/16 08:36 76 153/82 08/25/16 08:00 Room Air 08/25/16 07:50 97.6 19 96 97.6 Physical Exam PHYSICAL EXAM GENERAL: NAD, Alert HEENT: PERRL, OC/OP -clear NECK: Supple, no JVD, no LN LUNGS: Clear HEART: S1S2, no gallop, no murmur ABD: Soft, NT, no organomegaly, no rebound, mild obese EXT: No edema, no cyanosis CLERICAL SECRETARY: Alert, oriented x 3, no focal neurologic deficit SKIN: No rash IV: ok Labs Lab Laboratory Tests Test 08/25/16 06:05 Sodium Level 138mmol/L (136-145) Potassium Level 4.6mmol/L (3.5-5.1) Chloride Level 101mmol/L (98-107) Carbon Dioxide Level 27mmol/L (21-32) Anion Gap 10 (6-14) Blood Urea Nitrogen 16mg/dL (8-26) Creatinine 1.4mg/dL (0.7-1.3) Estimated GFR (Cockcroft-Gault) 62.6 Glucose Level 91mg/dL (70-99) Calcium Level 9.3mg/dL (8.5-10.1) Objective Assessment Fever. resolved URI symptoms, improved still some congestion R un V-tach Nonischemic cardiomyopathy Syncope h/o Aortic dissection s/p stenting Renal insufficiency Constipated Plan Plan of Care Doxy for congestion for 3 more days ID to sign off MARGA CORTES MD Aug 25, 2016 09:17
[2016-08-25 10:40] VITALS: BP 159/77
[2016-08-25] MEDS ORDERED: DOXY100C2 PO (11:28)
== END 2016-08-25 12:30 | disposition home or self-care (01) | DRG 872 ==
LOC: 5 NORTH 20:20 → 2 NORTH 08-23 18:45
PROVIDERS: ADMIT Specialist; ATTEND Specialist
DX: A41.9 Sepsis, unspecified organism (principal); I13.0 Hypertensive heart and chronic kidney disease with heart failure and stage 1 through stage 4 chronic kidney disease, or unspecified chronic kidney disease; I42.9 Cardiomyopathy, unspecified; I47.2 Ventricular tachycardia; I50.22 Chronic systolic (congestive) heart failure; J11.1 Influenza due to unidentified influenza virus with other respiratory manifestations; E87.6 Hypokalemia; I25.10 Atherosclerotic heart disease of native coronary artery without angina pectoris; I95.1 Orthostatic hypotension; Z53.29 Procedure and treatment not carried out because of patient's decision for other reasons; J20.9 Acute bronchitis, unspecified; J22 Unspecified acute lower respiratory infection; K59.00 Constipation, unspecified; N18.3 Chronic kidney disease, stage 3 (moderate); R09.02 Hypoxemia; W01.0XXA Fall on same level from slipping, tripping and stumbling without subsequent striking against object, initial encounter; Y93.89 Activity, other specified; Y92.89 Other specified places as the place of occurrence of the external cause; Y99.8 Other external cause status; Z95.5 Presence of coronary angioplasty implant and graft; Z88.5 Allergy status to narcotic agent; Z79.899 Other long term (current) drug therapy; Z87.891 Personal history of nicotine dependence
CPT/HCPCS: 36415; 71020; 71250; 80048; 80053; 81001; 82550; 83735; 84484; 85027; 87040; 87804; 93306; 94250; 94640; 94760; J0696; J1956; J7030; J7060; J7620

== ENCOUNTER → 2020-08-16 | Outpatient (CLI) | payer MEDICARE, BC ==
[~2020-08-16] MED LIST changes: +AMLO-187 PO; -AMLO10TA2 PO; +CARV12.511 PO; -CARV12.52 PO; +CARV25TA2 PO; +DOXY100C2 PO; +FURO40TA4 PO; +LISI1TAB20 PO; -LISI1TAB7 PO; +LISI20TA18 PO; -SPIR25TA3 PO; +SPIR25TA5 PO
--- NOTE | 2020-08-16 15:10 | RAD ---
Gastric Emptying Study Indication: Reason: ABDOMEN PAIN, BLOATING AND CONSTIPATION FOR 1 YEAR / Spl. Instructions: / Histor y: Procedure: Anterior and posterior projection static images are obtained over the stomach following or al administration of 2 mCi of 99 M technetium sulfur colloid in a solid meal (egg and toast). Time po ints include an immediate baseline, and 1, 2, 3, and 4 hours post ingestion. Findings: There is progressive emptying of the stomach on sequential images. Percentage retention at... One hour is 63% (normal 34.8-91%). Two hours 17% (normal 2.7-60%). Three hours 1% (normal 0.5-28%). Impression: Normal gastric emptying study. Consensus Recommendations for Gastric Emptying Scintigraphy: A Joint Report of the [place] [employer] and the Society of Nuclear Medicine: J. Nucl. Med. Technol. September 04 vol. 36 no. 1 44-54 Grading for severity of delayed GE based on the 4-h value: grade 1 (mild): 11?20% retention at 4 h grade 2 (moderate): 21?35% retention at 4 h grade 3 (severe): 36?50% retention at 4 h grade 4 (very severe): >50% retention at 4 h. Electronically signed by: Juan Jose Rodriges MD (08/16/2020 3:08 PM) [id number]
== END ==
LOC: NM 09:39
PROVIDERS: ATTEND Internal Medicine Gastroenterology
DX: K21.9 Gastro-esophageal reflux disease without esophagitis (principal)
CPT/HCPCS: 78264; A9541